=== PATIENT | female | born 1995 | race Caucasian/White ===

== ENCOUNTER 2019-11-30 19:35 | Emergency (ER) | payer BC ==
[2019-11-30 19:52] VITALS: BP 123/72
[2019-11-30] MEDS ORDERED: NORMAL SALINE 1000 ML 1,000 ML IV ONE (20:19)
[2019-11-30] MEDS ORDERED: ACETAMINOPHEN 325 MG TABLET PO ONE (20:19)
[2019-11-30] MEDS ORDERED: METOCLOPRAMIDE HCL INJ/PF 10 MG/2 ML SDV IV ONE (20:19)
--- NOTE | 2019-11-30 20:21 | ER Document Report ---
ED Medical Screen (RME) - General Chief Complaint: Flu Symptoms Stated Complaint: ABDOMINAL PAIN/FEVER Time Seen by Provider: 11/30/19 20:10 Mode of Arrival: Ambulatory Information source: Patient Notes: 24-year-old female patient presenting to the emergency department chief complaint of fever, nausea, vomiting, all over body aches. Patient reports she is 11 weeks . Exam: Patient alert, oriented, answering all questions, no acute distress noted. Lung sounds clear and equal bilaterally. I have greeted and performed a rapid initial assessment of this patient. A comprehensive ED assessment and evaluation of the patient, analysis of test results and completion of the medical decision making process will be conducted by additional ED providers. I have specifically instructed the patient or family members with the patient to immediately return to any nursing staff should anything change in the patient's condition or with their chief complaint. TRAVEL OUTSIDE OF THE [place] IN LAST 30 DAYS: No - Related Data Home Medications: vitamins. zofran prn. tylenol prn. robitussin prn Physical Exam - Vital signs Vitals: Temp Pulse Resp BP Pulse Ox 99.0 F 125 H 18 123/72 100 11/30/19 19:47 11/30/19 19:47 11/30/19 19:47 11/30/19 19:47 11/30/19 19:47 Course - Vital Signs Vital signs: Temp Pulse Resp BP Pulse Ox 99.0 F 125 H 18 123/72 100 11/30/19 19:47 11/30/19 19:47 11/30/19 19:47 11/30/19 19:47 11/30/19 19:47
[2019-11-30 21:06] LABS: ABSOLUTE LYMPHOCYTES (AUTO) 0.6 10^3/uL (0.5-4.7); ABSOLUTE MONOCYTES (AUTO) 0.5 10^3/uL (0.1-1.4); ABSOLUTE NEUT (AUTO) 9.9 10^3/uL (1.7-8.2); BASOPHILS % (AUTO) 0.1 % (0-2); EOSINOPHILS % (AUTO) 0.1 % (0-6); HEMATOCRIT 41.3 % (36.0-47.0); HEMOGLOBIN 14.5 g/dL (12.0-15.5); LYMPHOCYTES % (AUTO) 5.3 % (13-45); MEAN CORPUSCULAR HEMOGLOBIN 30.7 pg (27.0-33.4); MEAN CORPUSCULAR HGB CONC 35.1 g/dL (32.0-36.0); MEAN CORPUSCULAR VOLUME 88 fl (80-97); MONOCYTES % (AUTO) 4.8 % (3-13); PLATELET COUNT 234 10^3/uL (150-450); RED BLOOD COUNT 4.72 10^6/uL (3.72-5.28); RED CELL DISTRIBUTION WIDTH 13.6 % (11.5-14.0); SEGMENTED NEUTROPHILS % (AUTO) 89.7 % (42-78); TOTAL CELLS COUNTED % (AUTO) 100 %
[2019-11-30 21:09] LABS: APPEARANCE,URINE SLIGHTLY-CLOUDY; BILIRUBIN,URINE NEGATIVE (NEGATIVE); COLOR,URINE YELLOW; GLUCOSE, URINE NEGATIVE (NEGATIVE); KETONES,URINE 80 mg/dL (NEGATIVE); LEUKOCYTE ESTERASE,URINE NEGATIVE (NEGATIVE); NITRITE,URINE NEGATIVE (NEGATIVE); PROTEIN,URINE 100 mg/dL (NEGATIVE); UROBILINOGEN,URINE NEGATIVE mg/dL (<2.0)
[2019-11-30 21:22] LABS: A TYPE INFLUENZA AG NEGATIVE (NEGATIVE); B INFLUENZA AG NEGATIVE (NEGATIVE)
[2019-11-30 21:27] LABS: ALBUMIN 4.7 g/dL (3.5-5.0); ALKALINE PHOSPHATASE 53 U/L (38-126); ANION GAP 15 (5-19); ASPARTATE AMINO TRANSFERASE 23 U/L (14-36); BILIRUBIN,TOTAL 0.7 mg/dL (0.2-1.3); BLOOD UREA NITROGEN 6 mg/dL (7-20); CALCIUM 9.3 mg/dL (8.4-10.2); CARBON DIOXIDE 22 mmol/L (22-30); CHLORIDE 98 mmol/L (98-107); GLUCOSE 95 mg/dL (75-110); POTASSIUM 3.1 mmol/L (3.6-5.0); TOTAL PROTEIN 7.8 g/dL (6.3-8.2)
[2019-11-30] MEDS ORDERED: CEFTRIAXONE 1 GM/D5W RTU 1 GM/50 ML RTUPB IV SCH (23:00)
[2019-11-30] MEDS ORDERED: POTASSI CL 20 MEQ/50 ML RIDER 20 MEQ/50 ML RTUPB IV ONE (23:35)
[2019-11-30] MEDS ORDERED: POTASSIUM CHLORIDE 10 MEQ TABLET.ER PO ONE (23:36)
--- NOTE | 2019-12-01 00:05 | ER Document Report ---
Entered by BAYLEE ROSEN SCRIBE 11/30/19 [id number] Acting as scribe for:FELICIA GRIFFIN MD ED General - General Chief Complaint: Flu Symptoms Stated Complaint: ABDOMINAL PAIN/FEVER Time Seen by Provider: 11/30/19 20:10 Mode of Arrival: Ambulatory Information source: Patient Notes: 24-year-old female who is 11 weeks presents to the emergency department with flu-like symptoms that began 3 days ago. Patient states that she is visiting from [place] and arrived 5 days ago to the area. Patient complains of severe cough, clear/yellow with occasional blood sputum, nausea, migraines, sore throat and dizziness that is "not that bad". Patient denies diarrhea. Patient states that she has pain all over. TRAVEL OUTSIDE OF THE [place] IN LAST 30 DAYS: No - Related Data Allergies/Adverse Reactions: No Known Allergies Allergy (Unverified 11/30/19 22:22) Home Medications: vitamins. zofran prn. tylenol prn. robitussin prn Past Medical History - General Information source: Patient - Social History Smoking Status: Never Smoker Cigarette use (# per day): No Chew tobacco use (# tins/day): No Frequency of alcohol use: None Family History: Reviewed & Not Pertinent Patient has suicidal ideation: No Patient has homicidal ideation: No Pulmonary Medical History: Reports: Hx Asthma Psychiatric Medical History: Reports: Hx Depression, Hx Schizophrenia Surgical Hx: Negative Review of Systems - Review of Systems Constitutional: No symptoms reported EENT: No symptoms reported Cardiovascular: No symptoms reported Respiratory: See HPI, Cough, Sputum Gastrointestinal: See HPI, Nausea Genitourinary: No symptoms reported Female Genitourinary: See HPI, Musculoskeletal: No symptoms reported Skin: No symptoms reported Hematologic/Lymphatic: No symptoms reported Neurological/Psychological: denies: Hallucinations, Homicidal ideation, Suicidal ideation -: Yes All other systems reviewed and negative Physical Exam - Vital signs Vitals: Temp Pulse Resp BP Pulse Ox 99.0 F 125 H 18 123/72 100 11/30/19 19:47 11/30/19 19:47 11/30/19 19:47 11/30/19 19:47 11/30/19 19:47 - Notes Notes: Physical Exam: General: Alert, appears ill. HEENT: Normocephalic. Atraumatic. PERRL. Extraocular movements intact. Oropharynx clear. Mild erythema in throat. Neck: Supple. Non-tender. Respiratory: No respiratory distress. Clear and equal breath sounds bilaterally. Cardiovascular: Regular rate and rhythm. Abdominal: Normal Inspection. Non-tender. No distension. Normal Bowel Sounds. Back: No gross abnormalities. Extremities: Moves all four extremities. Upper extremities: Normal inspection. Normal ROM. Lower extremities: Normal inspection. No edema. Normal ROM. Neurological: Normal cognition. AAOx4. Normal speech. Psychological: Normal affect. Normal Mood. Skin: Warm. Dry. Normal color. Course - Re-evaluation Re-evalutation: 11/30/19 23:52 Patient is resting comfortably receiving IV fluids and IV potassium. Patient also is receiving IV Rocephin. Patient is anxious to leave at this time. - Vital Signs Vital signs: Temp Pulse Resp BP Pulse Ox 98.9 F 125 H 18 123/72 100 11/30/19 22:21 11/30/19 19:47 11/30/19 19:47 11/30/19 19:47 11/30/19 19:47 - Laboratory Result Diagrams: 11/30/19 20:28 11/30/19 20:28 Laboratory results interpreted by me: 11/30/19 11/30/19 11/30/19 20:23 20:28 20:28 WBC 11.0 H Lymph % (Auto) 5.3 L Absolute Neuts (auto) 9.9 H Seg Neutrophils % 89.7 H Sodium 135.0 L Potassium 3.1 L BUN 6 L Creatinine 0.44 L Urine Protein 100 H Urine Ketones 80 H Urine Blood MODERATE H 11/30/19 23:52 Patient has a mild elevated white count of 11.0. Urinalysis shows a small amount of blood in her urine. Patient reports that she noted last week a spotting for 1 to 2 days of blood. Patient is 11 weeks and not having any cramping at this time. Patient denies any further bleeding since last week. Most likely the urinalysis with moderate amount of blood is related to her recent blood that was present from a week ago. 11/30/19 23:53 Patient has a potassium of 3.1 which she is receiving IV potassium and p.o. potassium for this time. Discharge - Discharge Clinical Impression: First trimester , Upper respiratory infection, Acute bronchitis Condition: Stable Disposition: HOME, SELF-CARE Additional Instructions: Potassium A potassium-containing medication has been prescribed. This is usually used to treat potassium depletion caused by diuretics or by vomiting and manju rrhea. This type of medicine is available in many forms, including elixirs, powders, fruity drinks, and pills. If one type is not working out for you, another can be substituted. Potassium can cause stomach upset. This can be prevented by taking it with meals. Do not take more than your doctor recommends. Notify your doctor if you develop repeated vomiting, black or bloody stool, severe weakness or numbness. You are . care is best started as early in as possible. If you're unsure about continuing this , you should discuss this with your physician or with golf shoe spike assembler at [facility]. You should take only medications approved by your physician. Acetaminophen can safely be taken for minor pains. As a rule, medication for chronic conditions such as asthma or seizures can safely be continued. You should discu ss with the physician every medicine you take. Any regular exercise program can be continued. Talk to your physician, however, before engaging in competitive or demanding sports. Alcohol, smoking, and "street drugs" are dangerous to your baby. Cocaine is especially dangerous. Don't use any illicit drugs! You reported that you have noted some vaginal bleeding spotting last week. No further episodes of that and no cramping and no other discharge noted at this time. However there is blood in your urine today and do recommend that you follow-up with [facility] as indicated on the referral note. You have been started on antibiotics for your acute bronchitis upper respiratory illness. Bronchitis You have acute bronchitis. This disease is an infection or inflammation of the air passageways in your lungs. Symptoms usually include cough, low grade fever, shortness of breath, and wheezing. The cough usually persists for a couple of weeks. Most cases of bronchitis get better without antibiotics. We prescribe antibiotics when we believe bacteria are damaging your airways, or if there's high risk the bronchitis will worsen into pneumonia. Increase your fluid intake. A cool mist humidifier may make your lungs more comfortable. An expectorant (cough medicine that loosens phlegm) can help. If you smoke, STOP!!! Recovery from bronchitis can be somewhat slow, but you should see improvement within a day or two. Repeated episodes of bronchitis may result in lung damage -- for example, chronic bronchitis, recurrent pneumonias, or emphysema. Call the doctor if you develop increasing fever, shortness of breath, chest pain, bloody sputum, or otherwise worsen. If you have not improved at all after several days, contact the physician. Upper Respiratory Illness You have a viral infection of the respiratory passages -- a "cold." This common infection causes nasal congestion, drainage, and often sore throat and cough. It is caused by a virus and is highly contagious. The disease usually lasts a week or more, though the worst symptoms are usually over in 3 or 4 days. There is no "cure" for the viral infection -- it must run its course. If there is a complication, such as bacterial infection in the nose, sinuses, middle ear, or bronchial tubes, antibiotics may be required, but antibiotics won't affect the virus. If you smoke, you should STOP!! Drink plenty of fluids. A humidifier may help. An expectorant medication or decongestant may make you more comfortable. Use acetaminophen or ibuprofen for fever or aches. See the doctor if fever persists over two or three days, if there is any significant worsening of your symptoms, or if you simply fail to improve as expected. Prescriptions: Cephalexin Monohydrate [Keflex 500 mg Capsule] 500 mg PO Q6H 7 Days #28 capsule Potassium Chloride 40 meq PO DAILY #4 tablet.er Referrals: ALEXANDER VELSACO MD [[facility]] - Follow up as needed I personally performed the services described in the documentation, reviewed and edited the documentation which was dictated to the scribe in my presence, and it accurately records my words and actions.
--- NOTE | 2019-12-01 09:11 | EKG REPORT ---
SEVERITY:- NORMAL ECG - SINUS RHYTHM : Confirmed by: Sloan Goodman 01-Dec-2019 09:10:12
== END 2019-12-01 00:49 | disposition home or self-care (01) ==
LOC: ER 19:35
DX: O99.511 Diseases of the respiratory system complicating pregnancy, first trimester (principal); J20.9 Acute bronchitis, unspecified; J06.9 Acute upper respiratory infection, unspecified; J02.9 Acute pharyngitis, unspecified; J45.909 Unspecified asthma, uncomplicated; O99.351 Diseases of the nervous system complicating pregnancy, first trimester; G43.909 Migraine, unspecified, not intractable, without status migrainosus; O26.891 Other specified pregnancy related conditions, first trimester; R04.2 Hemoptysis; R11.0 Nausea; R42 Dizziness and giddiness; R31.9 Hematuria, unspecified; Z3A.11 11 weeks gestation of pregnancy; Z79.899 Other long term (current) drug therapy
CPT/HCPCS: 93005; 36415; 87040; 87070; 87880; 85025; 80053; 81001; 87804; 93010; J2765; J7030; J0696; 96361; 96374; 99284

== ENCOUNTER 2019-12-10 00:26 | Emergency (ER) | payer BC ==
[2019-12-10 02:19] LABS: ABSOLUTE EOSINOPHILS # (AUTO) 0.1 10^3/uL (0.0-0.6); ABSOLUTE LYMPHOCYTES (AUTO) 1.7 10^3/uL (0.5-4.7); ABSOLUTE MONOCYTES (AUTO) 0.5 10^3/uL (0.1-1.4); ABSOLUTE NEUT (AUTO) 8.3 10^3/uL (1.7-8.2); BASOPHILS % (AUTO) 0.4 % (0-2); EOSINOPHILS % (AUTO) 1.2 % (0-6); HEMATOCRIT 38.2 % (36.0-47.0); HEMOGLOBIN 13.8 g/dL (12.0-15.5); LYMPHOCYTES % (AUTO) 16.1 % (13-45); MEAN CORPUSCULAR HEMOGLOBIN 31.6 pg (27.0-33.4); MEAN CORPUSCULAR HGB CONC 36.1 g/dL (32.0-36.0); MEAN CORPUSCULAR VOLUME 87 fl (80-97); PLATELET COUNT 318 10^3/uL (150-450); RED BLOOD COUNT 4.37 10^6/uL (3.72-5.28); RED CELL DISTRIBUTION WIDTH 13.4 % (11.5-14.0); SEGMENTED NEUTROPHILS % (AUTO) 77.3 % (42-78); TOTAL CELLS COUNTED % (AUTO) 100 %; WHITE BLOOD COUNT 10.7 10^3/uL (4.0-10.5)
[2019-12-10 02:30] LABS: APPEARANCE,URINE SLIGHTLY-CLOUDY; BILIRUBIN,URINE NEGATIVE (NEGATIVE); COLOR,URINE YELLOW; GLUCOSE, URINE NEGATIVE (NEGATIVE); KETONES,URINE NEGATIVE (NEGATIVE); LEUKOCYTE ESTERASE,URINE NEGATIVE (NEGATIVE); NITRITE,URINE NEGATIVE (NEGATIVE); PROTEIN,URINE 30 mg/dL (NEGATIVE); URINE SPECIFIC GRAVITY 1.027; UROBILINOGEN,URINE NEGATIVE mg/dL (<2.0)
--- NOTE | 2019-12-10 03:34 | RADIOLOGY REPORT (SQ) ---
EXAM DESCRIPTION: US LESS THAN 14 WEEKS COMPLETED DATE/TME: 12/10/2019 01:25 CLINICAL HISTORY: 24 years Female, vaginal bleeding COMPARISON: None TECHNIQUE: Transabdominal. LIMITATIONS: None. FINDINGS: Intrauterine gestation is not confirmed. There is an intrauterine irregular fluid sac/collection with possible decidual reaction which may indicate a gestational sac. No yolk sac. No pole. No cardiac activity. If viable, current mean sac diameter of 2.8 cm would correspond with a gestational age of seven weeks and six days. 2.8-cm right ovary, 2.9-cm left ovary, and no free fluid appear otherwise unremarkable. IMPRESSION: No intrauterine confirmed. Differential diagnosis includes early viable intrauterine gestation, gestational loss, and occult ECTOPIC gestation. Recommend 48 -72 hours laboratory/sonographic surveillance.
--- NOTE | 2019-12-10 04:52 | ER Document Report ---
HPI - HPI Patient complains to provider of: Vaginal bleeding Time Seen by Provider: 12/10/19 04:35 Onset: Yesterday Onset/Duration: Gradual Quality of pain: Cramping Pain Level: 4 Context: Patient states that she is currently 12 weeks . Patient states that she has had some mild cramping and vaginal bleeding started yesterday. Patient states that she had an ultrasound on November 21 but has not had any additional care since then. Patient denies any urinary symptoms. Associated Symptoms: denies: Fever, Nausea, Vomiting Exacerbated by: Denies Relieved by: Denies Similar symptoms previously: No Recently seen / treated by doctor: No - ROS ROS below otherwise negative: Yes Systems Reviewed and Negative: Yes All other systems reviewed and negative - CONSTITUTIONAL Constitutional: DENIES: Fever - NEURO Neurology: DENIES: Weakness - GASTROINTESTINAL Gastrointestinal: REPORTS: Abdominal Pain. DENIES: Nausea, Patient vomiting - URINARY Urinary: DENIES: Dysuria, Urgency, Frequency - REPRODUCTIVE LMP: Sep 14 Reproductive: REPORTS: :, Abnormal bleeding / discharge - MUSCULOSKELETAL Musculoskeletal: DENIES: Back Pain - DERM Skin Color: Normal Skin Problems: None Past Medical History - General Information source: Patient - Social History Smoking Status: Never Smoker Frequency of alcohol use: None Drug Abuse: None Lives with: Family Family History: Reviewed & Not Pertinent Patient has suicidal ideation: No Patient has homicidal ideation: No Pulmonary Medical History: Reports: Hx Asthma Psychiatric Medical History: Reports: Hx Depression, Hx Schizophrenia Surgical Hx: Negative Vertical Provider Document - CONSTITUTIONAL Agree With Documented VS: Yes Exam Limitations: No Limitations General Appearance: WD/WN, No Apparent Distress - INFECTION CONTROL TRAVEL OUTSIDE OF THE [place] IN LAST 30 DAYS: No - HEENT HEENT: Atraumatic, Normocephalic - NECK Neck: Normal Inspection - RESPIRATORY Respiratory: Breath Sounds Normal, No Respiratory Distress - CARDIOVASCULAR Cardiovascular: Regular Rate, Regular Rhythm - GI/ABDOMEN Gastrointestinal: Abdomen Soft, Abdomen Tender - pelvic - BACK Back: Normal Inspection. negative: CVA Tenderness-Right, CVA Tenderness-Left - MUSCULOSKELETAL/EXTREMETIES Musculoskeletal/Extremeties: MAEW - NEURO Level of Consciousness: Awake, Alert, Appropriate Motor/Sensory: No Motor Deficit - DERM Integumentary: Warm, Dry, No Rash Course - Re-evaluation Re-evalutation: 12/10/19 04:49 Patient reports only mild cramping with light vaginal bleeding. Patient denies any lightheadedness or dizziness. Patient denies any concern about STI. Patient denies any urinary symptoms. Patient does have a quantitative hCG test over 5000 and ultrasound did not show any IUP. Patient states that she did have a prior ultrasound in which she was shown a developing that was within the uterus. Patient said this test was performed out of state in [place] back in November. Patient advised of radiologist recommendation of having a repeat quantitative hCG tests as well as repeat ultrasound in 48 to 72 hours. Good return precautions discussed with patient. Patient verbalized understanding is agreeable with discharge plan of care at this time. - Vital Signs Vital signs: Temp Pulse Resp BP Pulse Ox 97.8 F 85 16 127/73 H 100 12/10/19 00:33 12/10/19 00:33 12/10/19 00:33 12/10/19 00:33 12/10/19 00:33 - Laboratory Result Diagrams: 12/10/19 01:35 Laboratory results interpreted by me: 12/10/19 12/10/19 12/10/19 01:35 01:35 01:35 WBC 10.7 H MCHC 36.1 H Absolute Neuts (auto) 8.3 H Beta HCG, Quant 5564.90 H Urine Protein 30 H Urine Blood MODERATE H 12/10/19 04:49 Labs- Entire Visit 12/10/19 12/10/19 12/10/19 01:35 01:35 01:35 WBC 10.7 H RBC 4.37 Hgb 13.8 Hct 38.2 MCV 87 MCH 31.6 MCHC 36.1 H RDW 13.4 Plt Count 318 Lymph % (Auto) 16.1 [place] % (Auto) 5.0 Eos % (Auto) 1.2 Baso % (Auto) 0.4 Absolute Neuts (auto) 8.3 H Absolute Lymphs (auto) 1.7 Absolute Monos (auto) 0.5 Absolute Eos (auto) 0.1 Absolute Basos (auto) 0.0 Seg Neutrophils % 77.3 Beta HCG, Quant 5564.90 H Total Beta HCG POSITIVE Urine Color Urine Appearance Urine pH Ur Specific [place] Urine Protein Urine Glucose (UA) Urine Ketones Urine Blood Urine Nitrite Urine Bilirubin Urine Urobilinogen Ur Leukocyte Esterase Urine WBC (Auto) Urine RBC (Auto) Squamous Epi Cells Auto Urine Mucus (Auto) Urine Ascorbic Acid Blood Type A POSITIVE Rhogam Indicated RHOGAM NOT INDICATED 12/10/19 01:35 WBC RBC Hgb Hct MCV MCH MCHC RDW Plt Count Lymph % (Auto) [place] % (Auto) Eos % (Auto) Baso % (Auto) Absolute Neuts (auto) Absolute Lymphs (auto) Absolute Monos (auto) Absolute Eos (auto) Absolute Basos (auto) Seg Neutrophils % Beta HCG, Quant Total Beta HCG Urine Color YELLOW Urine Appearance SLIGHTLY-CLOUDY Urine pH 6.0 Ur Specific [place] 1.027 Urine Protein 30 H Urine Glucose (UA) NEGATIVE Urine Ketones NEGATIVE Urine Blood MODERATE H Urine Nitrite NEGATIVE Urine Bilirubin NEGATIVE Urine Urobilinogen NEGATIVE Ur Leukocyte Esterase NEGATIVE Urine WBC (Auto) 4 Urine RBC (Auto) 2 Squamous Epi Cells Auto 6 Urine Mucus (Auto) OCC Urine Ascorbic Acid NEGATIVE Blood Type Rhogam Indicated - Diagnostic Test Radiology reviewed: Reports reviewed Discharge - Discharge Clinical Impression: test positive, Vagina bleeding Condition: Stable Disposition: HOME, SELF-CARE Instructions: Ectopic Precaution ([facility]) Additional Instructions: Return immediately for any new or worsening symptoms: Fever, worsening pain, worsening vaginal bleeding or any concerning symptoms Followup with your [facility] for a recheck, call Thursday for an appointment Return in 48 to 72 hours for a repeat test as well as a repeat ultrasound. Referrals: [facility] [Provider Group] - 12/12/19
[2019-12-10 05:26] VITALS: BP 104/57
== END 2019-12-10 04:55 | disposition home or self-care (01) ==
LOC: ER 00:26
DX: N93.9 Abnormal uterine and vaginal bleeding, unspecified (principal); Z32.01 Encounter for pregnancy test, result positive; R10.9 Unspecified abdominal pain; R25.2 Cramp and spasm; J45.909 Unspecified asthma, uncomplicated
CPT/HCPCS: 36415; 76801; 81001; 84702; 85025; 86900; 86901; 99284

== ENCOUNTER 2019-12-12 12:19 | Emergency (ER) | payer BC ==
--- NOTE | 2019-12-12 12:52 | ER Document Report ---
ED Medical Screen (RME) - General Chief Complaint: Vag Bleeding, +preg <12wks Stated Complaint: VAGINAL BLEEDING Time Seen by Provider: 12/12/19 12:44 Notes: Patient is a 24-year-old female who presents emergency department with chief complaint of vaginal bleeding. Patient reports she was seen here 3 days ago. Patient reports she was told to return within the next 48 to 72 hours to have a repeat hCG quant drawn as well as an ultrasound. Patient reports she was supposed to be about 12 weeks with her last menstrual cycle being in early September. Patient reports that she had a confirmed gestational sac on November 21 in [place] and started to have some vaginal bleeding last week. Patient reports that she was told to return if she had low hCG levels and an abnormal ultrasound. Patient reports that she continues to have some vaginal bleeding which is more than spotting but not like a menstrual cycle, reports that this is brown no blood, and some lower abdominal cramping. TRAVEL OUTSIDE OF THE [place] IN LAST 30 DAYS: No - Related Data Allergies/Adverse Reactions: No Known Allergies Allergy (Verified 12/12/19 12:44) Past Medical History - Social History Frequency of alcohol use: None Drug Abuse: None Pulmonary Medical History: Reports: Hx Asthma Psychiatric Medical History: Reports: Hx Depression, Hx Schizophrenia Physical Exam - Vital signs Vitals: Temp Pulse Resp BP Pulse Ox 98.3 F 99 20 106/58 L 98 12/12/19 12:36 12/12/19 12:36 12/12/19 12:36 12/12/19 12:36 12/12/19 12:36 - Abdominal Inspection: Normal Distension: No distension Bowel sounds: Normal Tenderness: Nontender Organomegaly: No organomegaly Course - Re-evaluation Re-evalutation: 12/12/19 12:52 I have greeted and performed a rapid initial assessment of this patient. A comprehensive ED assessment and evaluation of the patient, analysis of test results and completion of the medical decision making process will be conducted by additional ED providers. - Vital Signs Vital signs: Temp Pulse Resp BP Pulse Ox 98.3 F 99 20 106/58 L 98 12/12/19 12:36 12/12/19 12:36 12/12/19 12:36 12/12/19 12:36 12/12/19 12:36
[2019-12-12 13:21] LABS: ABSOLUTE EOSINOPHILS # (AUTO) 0.2 10^3/uL (0.0-0.6); ABSOLUTE LYMPHOCYTES (AUTO) 1.8 10^3/uL (0.5-4.7); ABSOLUTE MONOCYTES (AUTO) 0.3 10^3/uL (0.1-1.4); ABSOLUTE NEUT (AUTO) 4.2 10^3/uL (1.7-8.2); BASOPHILS % (AUTO) 0.5 % (0-2); HEMATOCRIT 39.5 % (36.0-47.0); HEMOGLOBIN 13.9 g/dL (12.0-15.5); LYMPHOCYTES % (AUTO) 27.5 % (13-45); MEAN CORPUSCULAR HEMOGLOBIN 31.1 pg (27.0-33.4); MEAN CORPUSCULAR HGB CONC 35.1 g/dL (32.0-36.0); MEAN CORPUSCULAR VOLUME 89 fl (80-97); MONOCYTES % (AUTO) 5.1 % (3-13); PLATELET COUNT 298 10^3/uL (150-450); RED BLOOD COUNT 4.45 10^6/uL (3.72-5.28); RED CELL DISTRIBUTION WIDTH 13.6 % (11.5-14.0); SEGMENTED NEUTROPHILS % (AUTO) 63.9 % (42-78); TOTAL CELLS COUNTED % (AUTO) 100 %; WHITE BLOOD COUNT 6.6 10^3/uL (4.0-10.5)
[2019-12-12 13:27] LABS: APPEARANCE,URINE SLIGHTLY-CLOUDY; BILIRUBIN,URINE NEGATIVE (NEGATIVE); COLOR,URINE YELLOW; GLUCOSE, URINE NEGATIVE (NEGATIVE); KETONES,URINE TRACE mg/dL (NEGATIVE); LEUKOCYTE ESTERASE,URINE MODERATE (NEGATIVE); NITRITE,URINE NEGATIVE (NEGATIVE); PROTEIN,URINE 30 mg/dL (NEGATIVE); URINE SPECIFIC GRAVITY 1.027; UROBILINOGEN,URINE NEGATIVE mg/dL (<2.0)
--- NOTE | 2019-12-12 13:33 | ER Document Report ---
ED GI/ - General Chief Complaint: Vag Bleeding, +preg <12wks Stated Complaint: VAGINAL BLEEDING Time Seen by Provider: 12/12/19 12:44 Notes: HPI: 24-year-old female -0-0-1 at 12 weeks by dates who presents today stating the onset a couple days ago of some cramping and vaginal bleeding without clots. Patient was seen and assessed here with a quantitative hCG around 5000 with no IUP. She is here for 48-hour recheck. She still states minimal bleeding without blood clots. Some mild intermittent cramping. No fevers, vomiting, or diarrhea. No aggravating relieving factors. ROS: See HPI All other review of systems reviewed and otherwise negative Reviewed vital signs and nursing note as charted by RN. PHYSICAL EXAM: CONSTITUTIONAL: Alert and oriented and responds appropriately to questions. Well-appearing; well-nourished HEAD: Normocephalic; atraumatic EYES: Sclerae is not pale ENT: Normal nose; no rhinorrhea; moist mucous membranes; pharynx without lesions noted NECK: Supple without meningismus; non-tender; no cervical lymphadenopathy, no masses CARD: Regular rate and rhythm; no murmurs; symmetric distal pulses RESP: Normal chest excursion without splinting or tachypnea; breath sounds clear and equal bilaterally; no wheezes, no rhonchi, no rales ABD/GI: Normal bowel sounds; non-distended; soft, no palpable masses; nontender to deep palpation of all 4 quadrants of the abdomen BACK: The back appears normal and is non-tender to palpation EXT: Normal ROM in all joints; non-tender to palpation; no edema SKIN: No acute lesions noted NEURO: CN 2-12 intact; 5/5 bilateral upper and lower extremity strength with sensation intact to light touch PSYCH: The patient's mood and manner are appropriate. Grooming and personal hygiene are appropriate. TRAVEL OUTSIDE OF THE [place] IN LAST 30 DAYS: No - Related Data Allergies/Adverse Reactions: No Known Allergies Allergy (Verified 12/12/19 12:44) Past Medical History - General Last Menstrual Period: 09/11/19 - Social History Smoking Status: Never Smoker Frequency of alcohol use: None Drug Abuse: None Family History: Reviewed & Not Pertinent Patient has suicidal ideation: No Patient has homicidal ideation: No Pulmonary Medical History: Reports: Hx Asthma Psychiatric Medical History: Reports: Hx Depression, Hx Schizophrenia Physical Exam - Vital signs Vitals: Temp Pulse Resp BP Pulse Ox 98.3 F 99 20 106/58 L 98 12/12/19 12:36 12/12/19 12:36 12/12/19 12:36 12/12/19 12:36 12/12/19 12:36 Course - Re-evaluation Re-evalutation: 12/12/19 13:33 Given the above history and physical we will perform a repeat quantitative hCG as well as a transvaginal ultrasound as well as perform a pelvic examination to check cervical dilation. 12/12/19 15:54 Patient currently has no pain. No vaginal active bleeding. Quantitative hCG has decreased. Ultrasound results as dictated. Urine culture has been sent and I will treat with Diflucan and a short course of Macrobid. Strict return precautions and 48-hour follow-up has been instructed. - Vital Signs Vital signs: Temp Pulse Resp BP Pulse Ox 98.4 F 70 16 106/66 100 12/12/19 15:49 12/12/19 15:49 12/12/19 15:49 12/12/19 15:49 12/12/19 15:49 - Laboratory Result Diagrams: 12/12/19 12:57 12/12/19 12:57 Laboratory results interpreted by me: 12/12/19 12/12/19 12:57 12:57 Creatinine 0.39 L Beta HCG, Quant 4406.00 H Urine Protein 30 H Urine Ketones TRACE H Urine Blood MODERATE H Ur Leukocyte Esterase MODERATE H Discharge - Discharge Clinical Impression: Threatened miscarriage Condition: Good Disposition: HOME, SELF-CARE Additional Instructions: Come back immediately for any increased bleeding, lightheadedness or dizziness, return of pain, fevers or vomiting, or any other acute problems. Please make sure that you take the antibiotics as prescribed and follow-up in 48 hours as we have discussed for repeat levels. Prescriptions: Nitrofurantoin Monohyd/M-Cryst [Macrobid 100 mg Capsule] 100 mg PO BID #14 cap
--- NOTE | 2019-12-12 13:43 | ER Document Report ---
Doctor's Note Notes: 12/12/19 13:42 Pelvic exam done with JANICE Tafoya at bedside. Patient had cervical motion tenderness and right adnexal tenderness. Cervix was closed. Patient had a small amount of yellow discharge noted. [place] blood noted. Findings reported to Dr. Dewey.
[2019-12-12 13:44] LABS: ALBUMIN 4.7 g/dL (3.5-5.0); ALKALINE PHOSPHATASE 40 U/L (38-126); ANION GAP 10 (5-19); ASPARTATE AMINO TRANSFERASE 21 U/L (14-36); BILIRUBIN,TOTAL 0.8 mg/dL (0.2-1.3); BLOOD UREA NITROGEN 9 mg/dL (7-20); CALCIUM 9.4 mg/dL (8.4-10.2); CARBON DIOXIDE 25 mmol/L (22-30); CHLORIDE 105 mmol/L (98-107); GLUCOSE 86 mg/dL (75-110); POTASSIUM 3.9 mmol/L (3.6-5.0)
[2019-12-12 14:03] LABS: BACTERIA (WET MOUNT) 4+ BACTERIA SEEN; EPITHELIALS (WET MOUNT) 3+ EPITHELIALS SEEN; RBCS (WET MOUNT) FEW RBCS SEEN; T.VAGINALIS (WET MOUNT) NO TRICHOMONAS SEEN; WBCS (WET MOUNT) 4+ WBCS SEEN; YEAST (WET MOUNT) YEAST SEEN
--- NOTE | 2019-12-12 15:02 | RADIOLOGY REPORT (SQ) ---
EXAM DESCRIPTION: U/S OB TRANSVAG W/DOPPLER COMPLETED DATE/TIME: 12/12/2019 2:42 pm REASON FOR STUDY: Repeat ultrasound, + , vaginal bleeding COMPARISON: Ultrasound from 12/10/2019. TECHNIQUE: Transvaginal static and realtime grayscale images acquired of the pelvis. Additional parish cted spectral and color Doppler images recorded. All images stored on PACs. bHC,406 mIU/mL. CLINICAL DATES: LMP 09/16/2019. IAIN based on LMP 06/22/2020. LIMITATIONS: None. FINDINGS: FETUS: Single Living intrauterine . ULTRASOUND EGA: 9 weeks 5 days based on MSD. ULTRASOUND IAIN: 07/11/2020. CRL: N/A. SUBCHORIONIC BLEED: There is a hypoechoic area adjacent to the gestational sac consistent with a subc horionic hemorrhage. SIZE OF BLEED: 2.9 x 2.8 x 2 cm. UTERUS: The uterus measures 10.9 x 6.9 x 4.9 cm. There is an irregular gestational sac in the lower uterine segment that contains a yolk sac ; no embryo is identified. CERVICAL LENGTH: 4.1 cm. Closed. RIGHT ADNEXA: The right ovary measures 3.4 x 2.6 x 2.3 cm and on Doppler there is intact arterial inf low and venous outflow within the ovarian stroma. There is a corpus luteum cyst in the right ovary t hat measures 1.9 x 2.1 x 1.7 cm. LEFT ADNEXA: The left ovary measures 2.9 x 2.1 x 1.7 cm and on Doppler there is intact arterial inflo w and venous outflow within the ovarian stroma. There is no adnexal mass. FREE FLUID: None. OTHER: No other finding. IMPRESSION: 1. Irregular intrauterine gestational sac with a yolk sac but no embryo. The absence of an embryo in a gestational sac with a mean sac diameter of greater than 2.5 cm is diagnostic of preg subhash failure. 2. Corpus luteum cyst in the right ovary. TECHNICAL DOCUMENTATION: JOB ID: [id number] 2010 [employer]- All Rights Reserved rev-02/26 Reading location - IP/workstation name: [facility]
[2019-12-12 15:35] LABS: CHLAM PCR NOT DETECTED (NOT DETECT)
[2019-12-12 15:50] VITALS: BP 106/66
[2019-12-12] MEDS ORDERED: NITROFURANTOIN MONOHYD/M-CRYST 100 MG CAPSULE PO ONE (15:54)
[2019-12-12] MEDS ORDERED: FLUCONAZOLE 100 MG TABLET PO SCH (16:00)
== END 2019-12-12 16:04 | disposition home or self-care (01) ==
LOC: ER 12:19
DX: O20.0 Threatened abortion (principal); Z3A.12 12 weeks gestation of pregnancy
CPT/HCPCS: 99284; 36415; 87086; 87210; 84702; 85025; 80053; 81001; 87491; 87591; 76817; 93976; J8499